=== PATIENT | female | born 1945 | race Caucasian/White ===

== ENCOUNTER → 2019-03-02 | Outpatient (CLI) | payer MEDICARE ==
--- NOTE | 2019-03-02 14:45 | Diagnostic Imaging Report ---
INDICATION: Pain and stiff neck for 6 weeks TECHNIQUE: Four views of the cervical spine were obtained. FINDINGS: There is normal height and alignment of the vertebral bodies. There is disc space narrowing and spondylosis at C5-6 and C6-7. There are mild degenerated facets in the lower cervical spine. No fracture is seen. IMPRESSION: There are degenerative changes present with no acute abnormality seen. Dictated by: Dictated on workstation # [id number]
== END ==
LOC: RAD FS 14:08
PROVIDERS: ATTEND Family Medicine
DX: M47.812 Spondylosis without myelopathy or radiculopathy, cervical region (principal)
CPT/HCPCS: 72040

== ENCOUNTER → 2020-02-28 | Outpatient (CLI) | payer MEDICARE ==
[2020-02-28 10:40] LABS: BUN/CREATININE RATIO 17; CALCIUM 9.3 MG/DL (8.5-10.1); CARBON DIOXIDE 26 MMOL/L (21-32); CHLORIDE 104 MMOL/L (98-107); CREATININE SERUM 0.82 MG/DL (0.60-1.30); GFR ESTIMATED > 60; GLUCOSE 103 MG/DL (70-105); POTASSIUM 4.2 MMOL/L (3.6-5.0); SODIUM 139 MMOL/L (135-145)
[2020-02-28 10:41] LABS: ALANINE AMINOTRANSFERASE 9 U/L (0-55); ALBUMIN 4.1 GM/DL (3.2-4.5); ALKALINE PHOSPHATASE 118 U/L (40-136); BILIRUBIN,TOTAL 0.6 MG/DL (0.1-1.0); TOTAL PROTEIN 6.8 GM/DL (6.4-8.2)
[2020-02-28 15:46] LABS: CHOLESTEROL 179 MG/DL (< 200); HDL CHOLESTEROL 65 MG/DL (40-60); TRIGLYCERIDES 62 MG/DL (<150); VLDL CHOLESTEROL 12 MG/DL (5-40)
== END ==
LOC: LAB FS 09:42
PROVIDERS: ATTEND Family Medicine
DX: I10 Essential (primary) hypertension (principal); E03.9 Hypothyroidism, unspecified; M79.2 Neuralgia and neuritis, unspecified
CPT/HCPCS: 36415; 80053; 80061; 82607; 84443

== ENCOUNTER → 2020-04-14 | Outpatient (CLI) | payer MEDICARE | LOC: LAB FS 10:40 | PROVIDERS: ATTEND Family Medicine | DX: E55.9 Vitamin D deficiency, unspecified (principal); R25.2 Cramp and spasm; E53.8 Deficiency of other specified B group vitamins | CPT/HCPCS: 36415; 82306; 82607; 83735 ==

== ENCOUNTER 2020-05-15 14:00 | Emergency (ER) | payer MEDICARE ==
[~2020-05-15] VITALS: Ht 157.5 cm; Wt 97.7 kg
--- NOTE | 2020-05-15 14:07 | ED Cardiac General ---
History of Present Illness General Chief Complaint: Cardiac/General Problems Stated Complaint: CHEST HEAVINESS; FAST HR History of Present Illness Date Seen by Provider: May 15, 2020 Time Seen by Provider: 14:07 Initial Comments 74-year-old female presents with irregular heart rate and fast heart rate this finger on for about 3 days. Patient also describes a heaviness in her chest but no chest pain. Patient reports that she thought it would get better and hasn't. Patient states she was seen at urgent care about a week ago for allergies but no other illness type symptoms such as fever, chills, cough, shortness of breath. Patient has no known prior history of atrial fib. Allergies and Home Medications Allergies Coded Allergies: No Known Drug Allergies (Unverified , 05/15/20) Patient Home Medication List Home Medication List Reviewed: Yes Review of Systems Review of Systems Constitutional: No chills, No dizziness, No fever, No malaise Respiratory: Denies Cough, Denies Shortness of Air, Denies Wheezing Cardiovascular: Denies Edema; Irregular Heart Rate, Palpitations; Denies S yncope Gastrointestinal: No Symptoms Reported Genitourinary: No Symptoms Reported Musculoskeletal: no symptoms reported Skin: no symptoms reported Psychiatric/Neurological: No Symptoms Reported Endocrine: No Symptoms Reported Past Lrbxetn-Buckfv-Pcanrg Hx Past Med/Social Hx: Reviewed Nursing Past Med/Soc Hx Physical Exam Vital Signs Vital Signs - First Documented 05/15/20 14:20 Temp 35.8 Pulse 124 Resp 20 B/P (MAP) 156/95 (115) Pulse Ox 97 O2 Delivery Room Air Capillary Refill : Height, Weight, BMI Height: '" Weight: lbs. oz. 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 Norm as Tested Skin: Normal Color, Warm/Dry Progress/Results/Core Measures Results/Orders Lab Results Laboratory Tests Test 05/15/20 14:20 Range/Units White Blood Count 9.7 4.3-11.0 10^3/uL Red Blood Count 4.26 L 4.35-5.85 10^6/uL Hemoglobin 11.9 11.5-16.0 G/DL Hematocrit 37 35-52 % Mean Corpuscular Volume 87 80-99 FL Mean Corpuscular Hemoglobin 28 25-34 PG Mean Corpuscular Hemoglobin Concent 32 32-36 G/DL Red Cell Distribution Width 14.2 10.0-14.5 % Platelet Count 231 130-400 10^3/uL Mean Platelet Volume 10.1 7.4-10.4 FL Immature Granulocyte % (Auto) 0 % Neutrophils (%) (Auto) 72 42-75 % Lymphocytes (%) (Auto) 17 12-44 % Monocytes (%) (Auto) 9 0-12 % Eosinophils (%) (Auto) 2 0-10 % Basophils (%) (Auto) 0 0-10 % Neutrophils # (Auto) 7.0 1.8-7.8 X 10^3 Lymphocytes # (Auto) 1.6 1.0-4.0 X 10^3 Monocytes # (Auto) 0.8 0.0-1.0 X 10^3 Eosinophils # (Auto) 0.2 0.0-0.3 10^3/uL Basophils # (Auto) 0.0 0.0-0.1 10^3/uL Immature Granulocyte # (Auto) 0.0 0.0-0.1 10^3/uL Prothrombin Time 14.3 12.2-14.7 SEC INR Comment 1.1 0.8-1.4 Activated Partial Thromboplast Time 31 24-35 SEC Sodium Level 140 135-145 MMOL/L Potassium Level 4.5 3.6-5.0 MMOL/L Chloride Level 107 98-107 MMOL/L Carbon Dioxide Level 22 21-32 MMOL/L Anion Gap 11 5-14 MMOL/L Blood Urea Nitrogen 17 7-18 MG/DL Creatinine 0.91 0.60-1.30 MG/DL Estimat Glomerular Filtration Rate > 60 BUN/Creatinine Ratio 19 Glucose Level 105 70-105 MG/DL Calcium Level 9.0 8.5-10.1 MG/DL Corrected Calcium 8.9 8.5-10.1 MG/DL Magnesium Level 1.9 1.6-2.4 MG/DL Total Bilirubin 0.5 0.1-1.0 MG/DL Aspartate Amino Transf (AST/SGOT) 17 5-34 U/L Alanine Aminotransferase (ALT/SGPT) 11 0-55 U/L Alkaline Phosphatase 137 H 40-136 U/L Troponin I < 0.30 <0.30 NG/ML Pro-B-Type Natriuretic Peptide 2564.0 H <75.0 PG/ML Total Protein 6.7 6.4-8.2 GM/DL Albumin 4.1 3.2-4.5 GM/DL My Orders Orders - STEVENS,REBECA L DO Cbc With Automated Diff (05/15/20 14:12) Magnesium (05/15/20 14:12) Chest 1 View Ap/Pa Only (05/15/20 14:12) Ekg Tracing (05/15/20 14:12) Comprehensive Metabolic Panel (05/15/20 14:12) Protime With Inr (05/15/20 14:12) Partial Thromboplastin Time (05/15/20 14:12) Monitor-Rhythm Ecg Trace Only (05/15/20 14:12) Lipid Panel (05/16/20 06:00) Ed Iv/Invasive Line Start (05/15/20 14:12) Troponin I Fs (05/15/20 14:12) Probnp Fs (05/15/20 14:12) Diltiazem Injection (Cardizem Injection) (05/15/20 14:15) Diltiazem Cd 24 Hr Capsule (Cardizem Cd (05/16/20 09:00) Enoxaparin Injection (Lovenox Injection) (05/15/20 16:30) Diltiazem Cd 24 Hr Capsule (Cardizem Cd (05/15/20 16:39) Medications Given in ED Current Medications Medications Dose Ordered Sig/Cruz Route Start Time Stop Time Status Last Admin Dose Admin Diltiazem HCl 15 mg ONCE ONCE IVP 05/15/20 14:15 05/15/20 14:16 DC 05/15/20 14:38 15 MG Enoxaparin Sodium 100 mg ONCE ONCE SC 05/15/20 16:30 05/15/20 16:31 DC 05/15/20 16:37 100 MG Vital Signs/I&O 05/15/20 14:20 Temp 35.8 Pulse 124 Resp 20 B/P (MAP) 156/95 (115) Pulse Ox 97 O2 Delivery Room Air Progress Progress Note : Time: 16:24 Initial ECG Impression Date: May 15, 2020 Initial ECG Impression Time: 14:11 Initial ECG Rate: 109 Initial ECG Rhythm: A Fib/Flutter Initial ECG Impression: Atrial Fibrillation Comment atrial fib, no acute findings Departure Impression Primary Impression: Atrial fibrillation Qualified Codes: I48.91 - Unspecified atrial fibrillation Disposition: HOME, SELF-CARE Condition: Stable Departure-Patient Inst. Referrals: TYLER ALLEN MD (PCP/Family) Primary Care Physician BINH LANDEROS MD Patient Instructions: Atrial Fibrillation Add. Discharge Instructions: Please follow-up with Dr. Burden tomorrow morning at 9 AM at the cardiology office in [facility] All discharge instructions reviewed with patient and/or family. Voiced understanding. Scripts Apixaban (Eliquis) 5 Mg Tablet 5 MG PO BID for 30 Days, #72 TAB TAKE 2 TABLETS BID X 7 DAYS, THEN 1 TABLET BID Prov: REBECA STEVENS DO 05/15/20 Diltiazem HCl (Cardizem Cd) 120 Mg Cap.er.24h 120 MG PO DAILY, #30 CAP Prov: REBECA STEVENS DO 05/15/20 REBECA STEVENS DO May 15, 2020 14:07
[2020-05-15 14:41] LABS: HEMATOCRIT 37 % (35-52); HEMOGLOBIN 11.9 G/DL (11.5-16.0); MEAN CORPUSCULAR HEMOGLOBIN 28 PG (25-34); MEAN CORPUSCULAR HGB CONC 32 G/DL (32-36); MEAN CORPUSCULAR VOLUME 87 FL (80-99); MEAN PLATELET VOLUME 10.1 FL (7.4-10.4); PLATELET COUNT 231 10^3/uL (130-400); WHITE BLOOD COUNT 9.7 10^3/uL (4.3-11.0)
[2020-05-15 14:42] LABS: BASOPHILS % (AUTO) 0 % (0-10); EOSINOPHILS # (AUTO) 0.2 10^3/uL (0.0-0.3); EOSINOPHILS % (AUTO) 2 % (0-10); LYMPHOCYTES # (AUTO) 1.6 X 10^3 (1.0-4.0); LYMPHOCYTES % (AUTO) 17 % (12-44); MONOCYTES # (AUTO) 0.8 X 10^3 (0.0-1.0); MONOCYTES % (AUTO) 9 % (0-12); NEUTROPHILS % (AUTO) 72 % (42-75)
[2020-05-15 14:51] LABS: INR 1.1 (0.8-1.4); PROTHROMBIN TIME PATIENT 14.3 SEC (12.2-14.7)
[2020-05-15 14:56] LABS: BUN/CREATININE RATIO 19; CARBON DIOXIDE 22 MMOL/L (21-32); CHLORIDE 107 MMOL/L (98-107); CREATININE SERUM 0.91 MG/DL (0.60-1.30); GFR ESTIMATED > 60; GLUCOSE 105 MG/DL (70-105); POTASSIUM 4.5 MMOL/L (3.6-5.0); SODIUM 140 MMOL/L (135-145)
[2020-05-15 14:57] LABS: ALANINE AMINOTRANSFERASE 11 U/L (0-55); ALBUMIN 4.1 GM/DL (3.2-4.5); ALKALINE PHOSPHATASE 137 U/L (40-136); BILIRUBIN,TOTAL 0.5 MG/DL (0.1-1.0); MAGNESIUM 1.9 MG/DL (1.6-2.4); TOTAL PROTEIN 6.7 GM/DL (6.4-8.2)
--- NOTE | 2020-05-15 15:27 | Diagnostic Imaging Report ---
HISTORY: Chest heaviness and pain, heart palpitations, tachycardia. COMPARISON: None. FINDINGS: Lung volumes are normal. There is eventration of the right hemidiaphragm. Linear opacities in the right lung base likely represent atelectasis. There is mild cardiomegaly with mild central vascular congestion. No pleural effusion or pneumothorax is seen. A suture anchor is seen in the right humeral head. IMPRESSION: 1. Mild cardiomegaly with mild central vascular congestion. Dictated by: Dictated on workstation # [id number]
[2020-05-15] MEDS ORDERED: ENOXAPARIN 100 MG/1 ML (LOVENOX) SYR SC ONE (16:30)
[2020-05-15] MEDS ORDERED: dilTIAZem120 MG (CARDIZEM CD) CAP PO ONE (16:39)
[2020-05-15] MEDS ORDERED: DILT120C82 PO (16:54)
[2020-05-15] MEDS ORDERED: APIX5TAB PO (16:54)
[2020-05-15 17:35] VITALS: BP 144/99
--- NOTE | 2020-05-15 17:35 | NUR ---
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
[2020-05-16] MEDS ORDERED: dilTIAZem120 MG (CARDIZEM CD) CAP PO SCH (09:00)
== END 2020-05-15 17:35 | disposition home or self-care (01) ==
LOC: EDUNIT# 14:00 → ER FS 14:02
DX: I48.91 Unspecified atrial fibrillation (principal)
CPT/HCPCS: 36415; 71045; 80053; 83735; 83880; 84484; 85025; 85610; 85730; 93005; 93041

== ENCOUNTER → 2020-05-18 | Outpatient (CLI) | payer MEDICARE ==
[~2020-05-18] MED LIST: APIX5TAB PO; DILT120C82 PO
== END ==
LOC: CARD 12:00
PROVIDERS: ATTEND Internal Medicine Cardiovascular Disease
DX: I48.91 Unspecified atrial fibrillation (principal)

== ENCOUNTER → 2020-05-22 | Outpatient (CLI) | payer MEDICARE ==
[~2020-05-22] VITALS: Ht 157 cm; Wt 97.0 kg
[~2020-05-22] MED LIST changes: +CATHETER FLUSH 10 ML SYR IV PRN; +REGADENOSON 0.4 MG/5 ML SYR (LEXISCAN) IV ONE
[2020-05-22 09:15] VITALS: BP 153/108
--- NOTE | 2020-05-22 11:16 | Cardiology Stress Test Report ---
Stress Test Report Date of Procedure/Referring: Date of Procedure: May 22, 2020 PCP Binh Reid MD Admitting Physician Mary Jane Cordero MD Indications: Atrial fibrillation Baseline Heart Rate: 89 Baseline Blood Pressure: Blood Pressure Systolic: 153 Blood Pressure Diastolic: 108 Baseline Vitals Vital Signs Date Time Temp Pulse Resp B/P (MAP) Pulse Ox O2 Delivery O2 Flow Rate FiO2 05/22/20 09:15 79 18 153/108 (123) 98 Room Air Baseline EKG: Baseline EKG: atrial fibrillation with nonspecific T wave abnormality Summary After explaining the procedure to the patient, she signed a consent and then brought to the stress nuclear laboratory. Patient received 0.4 mg Lexiscan for stress test, ECG, heart rate and blood pressure were monitored continuously. Resting and stress dose of radio tracer were injected, imaging was acquired and reviewed in short axis, horizontal long axis and vertical long axis views. TID: 1.05 SSS: 0 SDS: 0 EF: 66 1. Patient tolerated Lexiscan well 2. Baseline atrial fibrillation persisted during test 3. No significant ischemia or infarction on SPECT images 4. Normal left ventricular size, EF 66 percent, gated images are unreliable due to underlying atrial fibrillation BINH REID MD May 22, 2020 11:16
== END ==
LOC: CARD 07:53
PROVIDERS: ATTEND Internal Medicine Cardiovascular Disease
DX: I48.91 Unspecified atrial fibrillation (principal)
CPT/HCPCS: 78452; 93017; A9502

== ENCOUNTER → 2020-07-03 | Outpatient (CLI) | payer MEDICARE ==
[~2020-07-03] MED LIST changes: -CATHETER FLUSH 10 ML SYR IV PRN; -REGADENOSON 0.4 MG/5 ML SYR (LEXISCAN) IV ONE
== END ==
LOC: LABNPT 05:35
PROVIDERS: ATTEND Internal Medicine Cardiovascular Disease
DX: Z01.89 Encounter for other specified special examinations (principal); Z20.822 Contact with and (suspected) exposure to COVID-19
CPT/HCPCS: 87635

== ENCOUNTER → 2020-07-05 | Day surgery (SDC) | payer MEDICARE ==
[2020-07-05] VITALS (12 sets, daily range): BP systolic 126–162; BP diastolic 67–122
[~2020-07-05] VITALS: Ht 157.5 cm; Wt 102.0 kg
[~2020-07-05] MED LIST changes: +ASPI-1238 PO; +BROM3DRO OS; +C,E,1CAP2 PO; +CARB1DRO OU; +CARV12.53 PO; +CELE-63 PO; +CYAN25003 SL; +DILT240C86 PO; +FLEC50TA PO; +FLUT9.9S NS; +GABA300C PO; +GLUC100016 PO; +LEVO125C4 PO; +LIDOCAINE 2% VISCOUS 15 ML UDC ONE; +NS IV 1000 ML 1,000 ML IV SCH; +OMEP20CA18 PO; +proPOfol 200 MG/20 ML (DIPRIVAN) VIAL IV ONE
[2020-07-05 09:27] LABS: HEMOGLOBIN 11.9 g/dL (11.5-16.0); MEAN PLATELET VOLUME 9.6 fL (9.0-12.2); WHITE BLOOD COUNT 6.5 10^3/uL (4.3-11.0)
[2020-07-05 09:28] LABS: BILIRUBIN,URINE NEGATIVE (NEGATIVE); CLARITY,URINE CLEAR; COLOR,URINE YELLOW; GLUCOSE, URINE (UA) NEGATIVE (NEGATIVE); KETONES,URINE NEGATIVE (NEGATIVE); LEUKOCYTE ESTERASE ,URINE 2+ (NEGATIVE); NITRITE,URINE NEGATIVE (NEGATIVE); PH,URINE 6.5 (5-9); PROTEIN,URINE NEGATIVE (NEGATIVE)
--- NOTE | 2020-07-05 09:31 | Diagnostic Imaging Report ---
EXAM: CHEST 1 VIEW, AP/PA ONLY INDICATION: Cardiac arrhythmia. COMPARISON: Chest radiograph 05/15/2020. FINDINGS: Cardiomegaly is stable. Normal central pulmonary vascularity. No focal pulmonary opacity. No pleural effusion or pneumothorax. No acute osseous findings. IMPRESSION: Stable cardiomegaly with normal central pulmonary vascularity. No acute findings. Dictated by: Dictated on workstation # [id number]
[2020-07-05 09:32] LABS: BACTERIA,URINE FEW /HPF; RBC,URINE 0-2 /HPF
[2020-07-05 09:39] LABS: POTASSIUM 4.3 MMOL/L (3.6-5.0)
[2020-07-05 09:40] LABS: CALCIUM 9.2 MG/DL (8.5-10.1)
[2020-07-05 09:41] LABS: TOTAL PROTEIN 7.3 GM/DL (6.4-8.2)
[2020-07-05 09:43] LABS: BILIRUBIN,TOTAL 0.7 MG/DL (0.1-1.0)
[2020-07-05 09:44] LABS: INR 1.3 (0.8-1.4); PROTHROMBIN TIME PATIENT 16.8 SEC (12.2-14.7)
[2020-07-05 09:45] LABS: CREATININE SERUM 0.97 MG/DL (0.60-1.30)
--- NOTE | 2020-07-05 10:27 | Cardiac Procedure Note-CS/ASA ---
Pre-Procedure Note Pre-Op Procedure Note H&P Reviewed The H&P was reviewed, patient examined and no changes noted. Date H&P Reviewed: Jul 05, 2020 Time H&P Reviewed: 10:27 Conscious Sedation Pre-Proced Time 10:27 ASA Score 3 For ASA 3 and 4: Consider anesthesia and medical clearance. Also, for patients with a history of failed moderate sedation consider anesthesia. Airway Lungs Heart ASA score ASA 1: a normal healthy patient ASA 2: a patient with a mild systemic disease (mid diabetes, controlled hypertension, obesity x ASA 3: a patient with a severe systemic disease that limits activity (angina, COPD, prior Myocardial infarction) ASA 4: a patient with an incapacitating disease that is a constant threat to life (CHF, renal failure) ASA 5: a moribund patient not expected to survive 24 hrs. (ruptured aneurysm) ASA 6: a declared brain- patient whose organs are being harvested. For emergent operations, add the letter E after the classification Mallampati Classification Grade 3 Sedation Plan Analgesia, Amnesia, Plan communicated to team members, Discussed options with patient/fam, Discussed risks with patient/fam The patient is an appropriate candidate to undergo the planned procedure, sedation, and anesthesia. The patient immediately re-assessed prior to indication. BINH LANDEROS MD Jul 05, 2020 10:27
--- NOTE | 2020-07-05 10:31 | Discharge Inst-Cardiology ---
Discharge Inst-Cardiac Problems Reviewed?: Yes Discharge Medications New Medications: Flecainide Acetate (Flecainide Acetate) 50 Mg Tablet 50 MG PO BID, #60 TAB 4 Refills Continued Medications: Apixaban (Eliquis) 5 Mg Tablet 5 MG PO BID, TAB Aspirin (Aspirin EC) 81 Mg Tablet.dr 81 MG PO Q48H, TAB Bromfenac Sodium (Prolensa) 3 Ml Drops 1 DROP OS DAILY, EA C,E,Zinc,Copper 24/Om3/Lut/Chad (Ocuvite Adult 50 Plus Softgel) 1 Each Capsule 1 EACH PO DAILY, CAP Carboxymethylcellulose Sodium (Refresh Plus) 1 Each Droperette 1 EACH OU PRN PRN for DRY EYES, DROP Carvedilol (Carvedilol) 12.5 Mg Tablet 12.5 MG PO BID, TAB Celecoxib (Celecoxib) 200 Mg Capsule 200 MG PO BID, CAP Cyanocobalamin (Vitamin B-12) (Vitamin B-12) 2,500 Mcg Tab.subl 2500 MCG SL DAILY, TAB Diltiazem HCl (Cardizem Cd) 240 Mg Cap.er.24h 240 MG PO DAILY, CAP Fluticasone Propionate (Flonase Allergy Relief) 9.9 Ml [place].susp 2 SPRAY NS HS PRN for CONGESTION, EACH Gabapentin (Neurontin) 300 Mg Capsule 300 MG PO HS, CAP Glucosamine Sulfate 2Kcl (Glucosamine) 1,000 Mg Tablet 1000 MG PO BID, TAB Levothyroxine Sodium (Levothyroxine) 125 Mcg Capsule 125 MCG PO DAILY, CAP Omeprazole (Omeprazole) 20 Mg Capsule.dr 20 MG PO HS, CAP New, Converted or Re-Newed RX: Call to Patients Pharmacy Patient Instructions Patient Instructions: Appointment with Dr. Reid's office in 2-4 weeks Activity & Diet Discharge Diet: Cardiac Diet Drink 6-8 Glasses/Fluids/Day: Yes Activity as Tolerated: Yes BINH REID MD Jul 05, 2020 10:31
--- NOTE | 2020-07-05 10:32 | Anesthesia-General Post-Op ---
MAC Patient Condition Mental Status/LOC: Same as Preop Cardiovascular: Satisfactory Nausea/Vomiting: Absent Respiratory: Satisfactory Pain: Controlled Complications: Absent Post Op Complications Complications None Follow Up Care/Instructions Patient Instructions None needed. Anesthesiology Discharge Order Discharge Order Patient is doing well, no complaints, stable vital signs, no apparent adverse anesthesia problems. DONNY BRISCOE DO Jul 05, 2020 10:32
--- NOTE | 2020-07-05 10:33 | Cardioversion ---
Cardioversion PROCEDURE PHYSICIAN: Binh Reid DATE OF PROCEDURE: 07/05/20 DIRECT EXTERNAL ELECTRICAL CARDIOVERSION: Indications: Atrial Fibrillation with rapid ventricular rate Preoperative diagnoses: Atrial Fibrillation with rapid ventricular rate Postoperative diagnosis: Sinus rhythm, Successful Electrical Cardioversion Anesthesia: By Anesthesia services Complications: None Specimen: None Contrast: 0 Flouroscopy: none Procedure Details: The patient was brought the manager cath lab after informed consent was taken, all the risks and complications were explained including the risk of stroke. Electrical cardioversion was carried out with anesthesia support with propofol. 150 joules of synchronized shock was delivered through external patches which promptly restored sinus rhythm. The patient tolerated the procedure well. Conclusions: Successful electrical cardioversion with no complication Final Diagnosis: Paroxysmal atrial fibrillation Hypertension Hyperlipidemia Palpitation BINH REID MD Jul 05, 2020 10:33
--- NOTE | 2020-07-05 10:36 | NUR ---
SPOKE WITH THE PT (SHE HAS HER HOME MED BOTTLES WITH HER) AND WENT THRU THE EXT MED HISTORY TO COMPLETE THE MED REC FILL DATES THAT ARE NOT SHOWN ON THE EXT MED HISTORY: 05-31-2020 CARDIZEM CD 240MG ER #90/90DS 06-06-2020 GABAPENTIN 300MG #30/30DS 06-12-2020 ELIQUIS 5MG #180/90DS 06-16-2020 LEVOTHYROXINE 125MCG #90/90DS OTC MEDS: GLUCOSAMINE OCUVITE REFRESH DROPS VITAMIN B-12 ASPIRIN 81MG- TAKES EVERY OTHER DAY
== END ==
LOC: CATH 08:43
PROVIDERS: ATTEND Internal Medicine Cardiovascular Disease
DX: I48.0 Paroxysmal atrial fibrillation (principal); I10 Essential (primary) hypertension; E78.5 Hyperlipidemia, unspecified; K21.9 Gastro-esophageal reflux disease without esophagitis; E03.9 Hypothyroidism, unspecified; Z79.01 Long term (current) use of anticoagulants; Z79.899 Other long term (current) drug therapy; Z88.5 Allergy status to narcotic agent; Z83.3 Family history of diabetes mellitus
CPT/HCPCS: 36415; 71045; 80053; 80061; 81000; 85027; 85610; 85730; 87081; 87088; 92960; 93005; 93312

== ENCOUNTER 2020-09-11 19:57 | Outpatient (CLI) | payer MEDICARE ==
[~2020-09-11 19:57] MED LIST changes: -LIDOCAINE 2% VISCOUS 15 ML UDC ONE; -NS IV 1000 ML 1,000 ML IV SCH; -proPOfol 200 MG/20 ML (DIPRIVAN) VIAL IV ONE
== END 2020-09-12 07:20 | disposition home or self-care (01) ==
LOC: SLEEP 19:57
PROVIDERS: ATTEND Internal Medicine Cardiovascular Disease
DX: G47.33 Obstructive sleep apnea (adult) (pediatric) (principal); I10 Essential (primary) hypertension; I49.9 Cardiac arrhythmia, unspecified
CPT/HCPCS: 95810

== ENCOUNTER → 2020-12-19 | Outpatient (CLI) | payer MEDICARE ==
[2020-12-19 09:46] LABS: POTASSIUM 4.5 MMOL/L (3.6-5.0); SODIUM 139 MMOL/L (135-145)
[2020-12-19 09:47] LABS: ALANINE AMINOTRANSFERASE 8 U/L (0-55); ALKALINE PHOSPHATASE 146 U/L (40-136); BILIRUBIN,TOTAL 0.5 MG/DL (0.1-1.0); BUN/CREATININE RATIO 16; CALCIUM 9.4 MG/DL (8.5-10.1); CARBON DIOXIDE 27 MMOL/L (21-32); CHLORIDE 103 MMOL/L (98-107); CREATININE SERUM 0.87 MG/DL (0.60-1.30); GFR ESTIMATED > 60; GLUCOSE 101 MG/DL (70-105); TOTAL PROTEIN 6.7 GM/DL (6.4-8.2)
[2020-12-19 15:20] LABS: TRIGLYCERIDES 50 MG/DL (<150); VLDL CHOLESTEROL 10 MG/DL (5-40)
[2020-12-19 15:25] LABS: CHOLESTEROL 183 MG/DL (< 200)
[2020-12-19 15:26] LABS: HDL CHOLESTEROL 72 MG/DL (40-60)
== END ==
LOC: LAB FS 08:51
PROVIDERS: ATTEND Family Medicine
DX: E03.9 Hypothyroidism, unspecified (principal); I10 Essential (primary) hypertension
CPT/HCPCS: 36415; 80053; 80061; 84443

== ENCOUNTER → 2021-05-02 | Day surgery (SDC) | payer MEDICARE ==
[~2021-05-02] VITALS: Ht 157 cm; Wt 101.0 kg
[~2021-05-02] MED LIST changes: +LIDOCAINE 1% INJ 20 ML 20 ML VIAL INJ ONE; +LIDOCAINE 1% INJ 20 ML 20 ML VIAL ONE
[2021-05-02 12:44] VITALS: BP 134/70
--- NOTE | 2021-05-02 13:00 | Implantation of Loop Monitor ---
Implant of Loop Monitior IMPLANTATION OF LOOP MONITOR REPORT DATE OF PROCEDURE: 05/02/21 PREOP DIAGNOSIS: Paroxysmal atrial fibrillation POSTOP DIAGNOSIS: Paroxysmal atrial fibrillation PROCEDURE DETAILS: The patient is a 75 female with history of paroxysmal atrial fibrillation requiring long-term surveillance prior to discontinuation of Eliquis. Therefore implantable loop recorder was discussed and agreed with the patient. Informed consent was taken. All risks and complications were discussed at length. The patient was draped and prepped in the usual sterile fashion. Local anesthesia was lidocaine, which was given in the substernal area close to the 4th intercostal space. Loop monitor [employer] with serial number [id number] was implanted according to the protocol. Steri-Strips were placed at the end of the procedure. There were no complications and the patient tolerated the procedure well. ANESTHESIA: Local anesthesia with lidocaine. COMPLICATIONS: None CONTRAST/FLUOROSCOPY: None CONCLUSION: Successful implantation of loop monitor Patient was instructed on stopping Eliquis. We will contact her if she has any further episodes of atrial fibrillation FINAL DIAGNOSIS: Paroxysmal atrial fibrillation BINH LANDEROS MD May 02, 2021 13:00
--- OUTSIDE RECORDS SUMMARY | 2021-05-07 10:00 | XMS REPORT | Clinical Summary ---
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 If you d o not see the information that you expected, contact Release of Information in [facility] Risk [employer] Information Management department at [phone] for further assistan ce in locating additional records.[facility] Allergies Comments Active Allergy Reactions Severity Noted Date Hydrocodone HALLUCINATION High 08/16/2019 S Medications End Date Status Medication Sig Dispensed Refills Start Date Active levothyroxine (SYNTHROID) Take 125 mcg 0 125 mcg tablet by mouth daily 30 minutes before breakfast. Active omeprazole DR (PRILOSEC) Take 20 mg by 0 20 mg capsule mouth daily before breakfast. Active carvediloL (COREG) 6.25 Take 6.25 mg 0 mg tablet by mouth twice daily with meals. Take with food. Active celecoxib (CELEBREX) 200 Take 200 mg 0 mg capsule by mouth twice daily. Active gabapentin (NEURONTIN) Take 100 mg 0 100 mg capsule by mouth every 8 hours. Active glucosamine 500 mg tab Take 500 mg 0 by mouth three times daily with meals. Active beta-carotene(A)-vits Take by 0 C,E/mins (OCUVITE PO) mouth. Active aspirin EC 81 mg tablet Take 81 mg by 0 mouth every other day as needed for Pain. Take with food. Active carboxymethylcellulose Place into 0 sodium (LUBRICANT DRY EYE or around RELIEF OP) eye(s). Active fluticasone propionate Apply to 0 (FLONASE) 50 each nostril mcg/actuation nasal as directed spray, suspension daily. Shake bottle gently before using. Active acetaminophen (TYLENOL) Take 500 mg 0 500 mg tablet by mouth every 6 hours as needed for Pain. Max of 4,000 mg of acetaminophen in 24 hours. Active pseudoephedrine (SUDAFED) Take 60 mg by 0 30 mg tablet mouth every 4 hours as needed for Congestion. Active gabapentin (NEURONTIN) Take one 90 capsule 3 300 mg capsule capsule by 0 mouth every 8 hours. Active tiZANidine (ZANAFLEX) 2 Take one 60 tablet 3 mg tablet tablet by 0 mouth twice daily as needed. Active Problems Not on file Surgical History Surgery Date Site/Laterality Comments KNEE REPLACEMENT 06/16/2013 - 06/15/2014 Medical History Medical History Date Comments Thyroid disorder Essential hypertension, benign Family History Medical History Relation Name Comments Cancer Sister Relation Name Status Comments Sister Social History Date Tobacco Use Types Packs/Day Years Used Never Smoker Smokeless Tobacco: Never Used Comments Alcohol Use Standard Drinks/Week Never 0 (1 standard drink = 0.6 o z pure alcohol) Alcohol Habits Answer Date Recorded How often do you have a drink containing alcohol? Never 08/11/2019 How many drinks containing alcohol do you have on No t asked a typical day when you are drinking? How often do you have six or more drinks on one Not asked occasion? Comment: Not asked Sex Assigned at Date Recorded Not on file Last Filed Vital Signs Reading Time Taken Comments Vital Sign 146/88 08/24/2019 10:51 AM CDT Blood Pressure 60 08/24/2019 10:51 AM CDT Pulse 36.4 C (97.5 F) 08/24/2019 10:01 AM CDT Temperature - - Respiratory Rate 95% 08/24/2019 10:51 AM CDT Oxygen Saturation - - Inhaled Oxygen Concentration 93 kg (205 lb) 08/24/2019 10:01 AM CDT Weight 157.5 cm (5' 2") 08/24/2019 10:01 AM CDT Height 37.49 08/24/2019 10:01 AM CDT Body Mass Index Plan of Treatment Health Maintenance Due Date Last Done Comments MEDICARE ANNUAL WELLNESS 1945 VISIT DTAP/TDAP VACCINES (1 - 1964 Tdap) HEPATITIS C SCREENING 1964 PHYSICAL (COMPREHENSIVE) 1964 EXAM BREAST CANCER SCREENING 1986 COLORECTAL CANCER 1996 SCREENING SHINGLES RECOMBINANT 1996 VACCINE (1 of 2) OSTEOPOROSIS 2011 SCREENING/MONITORING PNEUMONIA (PPSV23) 2011 VACCINE (1 of 1 - PPSV23) INFLUENZA VACCINE 01/14/2021 03/29/2019 Results Not on filefrom Last 3 Months Insurance Type Payer Benefit Subscriber ID Effective Phone Address Plan / Dates Group Medicare AETNA MEDICARE AETNA [id number] 2019-P [phone] [address] [id number] PPO MARYAN YOUNG [phone] Advance Directives 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
== END ==
LOC: CATH 13:30
PROVIDERS: ATTEND Internal Medicine Cardiovascular Disease
DX: I48.0 Paroxysmal atrial fibrillation (principal); I10 Essential (primary) hypertension; K27.9 Peptic ulcer, site unspecified, unspecified as acute or chronic, without hemorrhage or perforation; E03.9 Hypothyroidism, unspecified; M19.90 Unspecified osteoarthritis, unspecified site; Z79.82 Long term (current) use of aspirin; Z79.899 Other long term (current) drug therapy; Z79.1 Long term (current) use of non-steroidal anti-inflammatories (NSAID); Z79.01 Long term (current) use of anticoagulants; Z79.890 Hormone replacement therapy; Z98.890 Other specified postprocedural states

== ENCOUNTER → 2021-06-25 | Outpatient (CLI) | payer MEDICARE ==
[~2021-06-25] MED LIST changes: -LIDOCAINE 1% INJ 20 ML 20 ML VIAL INJ ONE; -LIDOCAINE 1% INJ 20 ML 20 ML VIAL ONE
== END ==
LOC: LAB FS 10:51
PROVIDERS: ATTEND Orthopaedic Surgery
DX: Z20.822 Contact with and (suspected) exposure to COVID-19 (principal)
CPT/HCPCS: 87635

== ENCOUNTER → 2021-07-23 | Outpatient (CLI) | payer MEDICARE | LOC: LAB FS 12:27 | PROVIDERS: ATTEND Family Medicine | DX: G62.9 Polyneuropathy, unspecified (principal) | CPT/HCPCS: 36415; 84550; 85652; 86038; 86039; 86200 ==

== ENCOUNTER → 2022-01-22 | Outpatient (CLI) | payer MEDICARE | LOC: LABNPT 15:39 | PROVIDERS: ATTEND Family Medicine | DX: U07.1 COVID-19 (principal) | CPT/HCPCS: 87636 ==

== ENCOUNTER → 2023-03-28 | Outpatient (CLI) | payer MEDICARE ==
[~2023-03-28] MED LIST changes: +ACET-11 PO; -CELE-63 PO; +CELE-91 PO; +CEPH500C PO; +ONDA4TAB11 PO
--- NOTE | 2023-03-28 14:31 | Diagnostic Imaging Report ---
EXAMINATION: Abdominal radiographs, single supine view, 2 images. DATE: March 28, 2023. CLINICAL INDICATION: 77-year-old female, history of right renal stones and ureteral stent placement. Abdominal pain. COMPARISON: CT abdomen and pelvis March 08, 2023. COMMENTS: There is a right-sided ureteral stone. There are several pelvic calcifications most likely reflecting phleboliths. There is no clearly identified stone along the course of the ureteral stent or otherwise identified in the included [id number]. There are no abnormally distended gas-filled segments of bowel. The upper abdomen is incompletely imaged. There are degenerative changes of the spine. IMPRESSION: 1. Right-sided ureteral stent noted without radiographically appreciable ureteral stone. 2. Unremarkable bowel gas pattern. Dictated by: Dictated on workstation # [id number]
== END ==
LOC: RAD FS 11:25
PROVIDERS: ATTEND Urology
DX: Z87.442 Personal history of urinary calculi (principal); Z96.0 Presence of urogenital implants
CPT/HCPCS: 74018